=== PATIENT | male | born 2000 | race Hispanic/Latino ===

== ENCOUNTER 2023-06-16 13:11 | Inpatient (IN) | payer OTHER ==
[~2023-06-16] VITALS: Ht 167.6 cm; Wt 103.5 kg
[2023-06-16] MEDS ORDERED: MORPHINE 4 MG SYG IVP ONE (15:00)
[2023-06-16] MEDS ORDERED: 0.9%NACL 1000ML 1,000 ML IV ONE ×2 (15:00→16:00)
[2023-06-16] MEDS ORDERED: ONDANSETRON 4MG INJ IVP ONE (15:30)
[2023-06-16 15:32] LABS: BASOPHILS # (AUTO) 0.09 K/uL (0.00-0.20); BASOPHILS % (AUTO) 0.3 % (0.0-5.0); EOSINOPHILS # (AUTO) 0.02 K/uL (0.00-0.70); EOSINOPHILS % (AUTO) 0.1 % (0.0-8.0); HEMATOCRIT 50.9 % (42-54); IMMATURE GRANULOCYTE ABSOLUTE 0.21 K/uL (0-1); LYMPHOCYTES # (AUTO) 1.9 K/uL (1.0-4.8); LYMPHOCYTES % (AUTO) 6.8 % (21.0-51.0); MEAN CORPUSCULAR HEMOGLOBIN 26.6 pg (27.0-33.0); MEAN CORPUSCULAR HGB CONC 34.2 g/dL (32.0-36.0); MEAN CORPUSCULAR VOLUME 77.8 fL (79-99); MONOCYTES # (AUTO) 1.5 K/uL (0.1-1.0); MONOCYTES % (AUTO) 5.3 % (3.0-13.0); NEUTROPHILS # (AUTO) 24.5 K/uL (1.8-7.7); NEUTROPHILS % (AUTO) 86.8 % (40.0-77.0); PLATELET COUNT (AUTO) 325 K/uL (130-400); RED BLOOD CELL COUNT(AUTO) 6.54 MIL/uL (4.50-6.20); RED CELL DISTRIBUTION WIDTH 13.6 % (11.0-15.5); WHITE BLOOD COUNT (AUTO) 28.2 K/uL (4.8-10.8)
[2023-06-16 15:33] LABS: APPEARANCE,URINE TURBID (CLEAR); BILIRUBIN,URINE NEGATIVE (NEGATIVE); COLOR,URINE YELLOW (YELLOW); GLUCOSE, URINE (UA) 30 mg/dL (NEGATIVE); KETONES,URINE 5 mg/dL (NEGATIVE); LEUKOCYTE ESTERASE ,URINE NEGATIVE Leu/uL (NEGATIVE); NITRATE,URINE NEGATIVE (NEGATIVE); PROTEIN,URINE 600 mg/dL (NEGATIVE)
[2023-06-16 15:36] LABS: ADD UA MICROSCOPIC YES
[2023-06-16 15:38] LABS: BACTERIA,URINE RARE /HPF (None Seen); MUCUS,URINE MOD LPF (None Seen); SQUAMOUS EPITHELIAL CELL,UR RARE /HPF (0-2); UNCLASSIFIED CRYSTAL 10 /HPF (None Seen)
[2023-06-16 15:48] LABS: CREATININE 0.9 mg/dL (0.5-1.5)
[2023-06-16 15:50] LABS: ALBUMIN 4.9 g/dL (3.5-5.0); BILIRUBIN,TOTAL 0.7 mg/dL (0.2-1.0)
[2023-06-16] MEDS ORDERED: CEFTRIAXONE 1G VIAL IVPB ONE (17:00)
[2023-06-16 17:39] LABS: RAPID GROUP A STREP negative (NEGATIVE)
[2023-06-16 17:43] LABS: SARS-CoV-2, RNA, NAAT NEGATIVE SARS CoV-2 (NEGATIVE)
[2023-06-16 17:49] LABS: INFLUENZA TYPE A Negative For Type A (NEGATIVE); INFLUENZA TYPE B Negative For Type B (NEGATIVE)
[2023-06-16] MEDS ORDERED: MORPHINE 4 MG SYG IV PRN (19:00)
[2023-06-16] MEDS ORDERED: POTASSIUM CHLORIDE 10% ELIXIR 20 MEQ/15 ML UDCUP PO PRN (19:00)
[2023-06-16] MEDS ORDERED: ACETAMINOPHEN 325 MG TAB PO PRN ×2 (19:00)
[2023-06-16] MEDS ORDERED: ONDANSETRON 4MG INJ IV PRN (19:00)
[2023-06-16] MEDS ORDERED: POTASSIUM CHLORIDE 20MEQ/100ML 100 ML IV PRN (19:00)
[2023-06-16] MEDS ORDERED: MORPHINE 2 MG SYG IV PRN (19:00)
[2023-06-16] MEDS ORDERED: LACTATED RINGERS 1000ML 1,845 ML IV ONE (19:00)
[2023-06-16] MEDS ORDERED: ZOSYN 3.375GM+NS 50ML 50 ML IVPB ONE (19:19)
[2023-06-16] MEDS ORDERED: FAMOTIDINE 20MG TAB ONE (19:19)
[2023-06-16] MEDS: FAMOTIDINE 20MG TAB PO SCH (19:22)
[2023-06-16] MEDS: ZOSYN 3.375GM+NS 50ML 50 ML IVPB SCH (19:23)
[2023-06-16 22:42] VITALS: BP 148/73; PULSE 61; RESP 20; O2SAT 97
[2023-06-17 03:38] VITALS: BP 124/69; PULSE 84; RESP 19
[2023-06-17] MEDS: ZOSYN 3.375GM+NS 50ML 50 ML IVPB SCH ×3 (04:43→21:05)
[2023-06-17 05:20] LABS: BASOPHILS % (AUTO) 0.6 % (0.0-5.0); EOSINOPHILS # (AUTO) 0.43 K/uL (0.00-0.70); EOSINOPHILS % (AUTO) 2.7 % (0.0-8.0); HEMATOCRIT 45.2 % (42-54); LYMPHOCYTES # (AUTO) 4.4 K/uL (1.0-4.8); LYMPHOCYTES % (AUTO) 27.4 % (21.0-51.0); MEAN CORPUSCULAR HEMOGLOBIN 26.9 pg (27.0-33.0); MEAN CORPUSCULAR HGB CONC 32.7 g/dL (32.0-36.0); MONOCYTES # (AUTO) 1.6 K/uL (0.1-1.0); MONOCYTES % (AUTO) 10.2 % (3.0-13.0); NEUTROPHILS # (AUTO) 9.3 K/uL (1.8-7.7); NEUTROPHILS % (AUTO) 58.5 % (40.0-77.0); PLATELET COUNT (AUTO) 261 K/uL (130-400); RED BLOOD CELL COUNT(AUTO) 5.51 MIL/uL (4.50-6.20)
[2023-06-17 05:37] LABS: CREATININE 0.8 mg/dL (0.5-1.5); MAGNESIUM 1.9 mg/dL (1.80-2.40); PHOSPHORUS 4.1 mg/dL (2.5-4.9)
[2023-06-17 08:00] VITALS: BP 133/62; PULSE 66; RESP 16; O2SAT 99
[2023-06-17] MEDS: FAMOTIDINE 20MG TAB PO SCH ×2 (08:25→21:05)
[2023-06-17] MEDS: ENOXAPARIN SODIUM 40 MG/0.4 ML SYRINGE SQ SCH (08:26)
[2023-06-17] MEDS: MAGNESIUM 2GM PREMIX 50ML 50 ML IV PRN (09:48)
[2023-06-17 11:00] VITALS: BP 125/81; PULSE 57; RESP 16
[2023-06-17 16:00] VITALS: BP 155/84; PULSE 78; RESP 16
[2023-06-17] MEDS: DOXYCYCLINE 100MG+NS 250ML IV SCH (17:19)
[2023-06-17 20:00] VITALS: BP 138/70; PULSE 68; RESP 18
[2023-06-17 20:20] VITALS: O2SAT 99
[2023-06-18] VITALS (8 sets, daily range): BP systolic 117–146; BP diastolic 64–84; PULSE 58–77; RESP 18–20; O2SAT 99
[2023-06-18] MEDS: DOXYCYCLINE 100MG+NS 250ML IV SCH ×2 (04:09→15:17)
[2023-06-18] MEDS: ZOSYN 3.375GM+NS 50ML 50 ML IVPB SCH ×3 (06:10→21:01)
[2023-06-18] MEDS: ENOXAPARIN SODIUM 40 MG/0.4 ML SYRINGE SQ SCH (08:58)
[2023-06-18] MEDS: FAMOTIDINE 20MG TAB PO SCH ×2 (08:58→21:01)
[2023-06-18 15:34] LABS: ALBUMIN 3.8 g/dL (3.5-5.0); BILIRUBIN,DIRECT 0.2 mg/dL (0.0-0.3); BILIRUBIN,TOTAL 0.6 mg/dL (0.2-1.0); TOTAL PROTEIN, SERUM 6.9 g/dL (6.0-8.3)
[2023-06-19] VITALS (8 sets, daily range): BP systolic 119–142; BP diastolic 73–83; PULSE 57–75; RESP 17–20; O2SAT 99
[2023-06-19] MEDS: DOXYCYCLINE 100MG+NS 250ML IV SCH (02:27)
[2023-06-19 05:02] LABS: HEMATOCRIT 44.4 % (42-54); MEAN CORPUSCULAR HEMOGLOBIN 26.9 pg (27.0-33.0); MEAN CORPUSCULAR HGB CONC 32.9 g/dL (32.0-36.0); MEAN CORPUSCULAR VOLUME 81.8 fL (79-99); RED BLOOD CELL COUNT(AUTO) 5.43 MIL/uL (4.50-6.20); WHITE BLOOD COUNT (AUTO) 16.5 K/uL (4.8-10.8)
[2023-06-19] MEDS: ZOSYN 3.375GM+NS 50ML 50 ML IVPB SCH ×2 (05:08→12:52)
[2023-06-19 05:28] LABS: ALBUMIN 3.5 g/dL (3.5-5.0); BILIRUBIN,DIRECT 0.1 mg/dL (0.0-0.3); BILIRUBIN,TOTAL 0.3 mg/dL (0.2-1.0); CREATININE 0.8 mg/dL (0.5-1.5); MAGNESIUM 1.9 mg/dL (1.80-2.40); POTASSIUM 3.6 mmol/L (3.5-5.1); TOTAL PROTEIN, SERUM 6.8 g/dL (6.0-8.3)
[2023-06-19] MEDS: KCL 20 MEQ ERTAB PO PRN ×2 (06:40→09:21)
[2023-06-19] MEDS: ENOXAPARIN SODIUM 40 MG/0.4 ML SYRINGE SQ SCH (09:00)
[2023-06-19] MEDS: FAMOTIDINE 20MG TAB PO SCH ×2 (09:21→20:41)
[2023-06-19] MEDS: MAGNESIUM 2GM PREMIX 50ML 50 ML IV PRN (09:22)
[2023-06-19] MEDS: 0.9%NACL 1000ML 1,000 ML IV SCH ×2 (14:46→20:41)
[2023-06-20] VITALS: BP 139/79; PULSE 19; RESP 19
[2023-06-20 04:00] VITALS: BP 136/69; PULSE 63; RESP 20
[2023-06-20 05:33] LABS: ALBUMIN 3.3 g/dL (3.5-5.0); BILIRUBIN,TOTAL 0.4 mg/dL (0.2-1.0); CREATININE 0.8 mg/dL (0.5-1.5); POTASSIUM 3.8 mmol/L (3.5-5.1); TOTAL PROTEIN, SERUM 6.8 g/dL (6.0-8.3)
[2023-06-20 08:00] VITALS: BP 130/74; PULSE 59; RESP 18; O2SAT 100
[2023-06-20] MEDS: ENOXAPARIN SODIUM 40 MG/0.4 ML SYRINGE SQ SCH (09:00)
[2023-06-20] MEDS: FAMOTIDINE 20MG TAB PO SCH (09:11)
[2023-06-20 11:47] VITALS: BP 133/78; PULSE 54; RESP 18
[2023-06-20 12:27] LABS: HEMATOCRIT 46.5 % (42-54); MEAN CORPUSCULAR HEMOGLOBIN 26.9 pg (27.0-33.0); MEAN CORPUSCULAR VOLUME 79.1 fL (79-99); RED BLOOD CELL COUNT(AUTO) 5.88 MIL/uL (4.50-6.20); RED CELL DISTRIBUTION WIDTH 12.7 % (11.0-15.5); WHITE BLOOD COUNT (AUTO) 13.4 K/uL (4.8-10.8)
== END 2023-06-20 17:15 | disposition home or self-care (01) | DRG 392 ==
LOC: EDH 13:11 → EDHIP 13:12 → 3DH 22:34
PROVIDERS: ADMIT Internal Medicine; ATTEND Internal Medicine
DX: K52.9 Noninfective gastroenteritis and colitis, unspecified (principal); R65.10 Systemic inflammatory response syndrome (SIRS) of non-infectious origin without acute organ dysfunction; Z20.822 Contact with and (suspected) exposure to COVID-19; E86.0 Dehydration; F17.210 Nicotine dependence, cigarettes, uncomplicated
CPT/HCPCS: 36415; 70450; 71045; 74176; 80048; 80053; 80076; 81001; 82550; 83605; 83735; 84100; 84145; 85025; 85027; 86757; 87040; 87088; 87635; 87804; 87880; C9803; G0378; J0696; J1650; J2270; J2405; J2543; J3475; J3490; J7030